=== PATIENT | male | born 1990 | race Caucasian/White ===

== ENCOUNTER 2019-05-12 23:33 | Emergency (ER) | payer SELFPAY ==
[~2019-05-12] VITALS: Ht 185.4 cm; Wt 87.6 kg
[2019-05-13 02:19] VITALS: BP 102/84
== END 2019-05-13 02:29 | disposition home or self-care (01) ==
LOC: ER 23:33
DX: L02.31 Cutaneous abscess of buttock (principal); Z90.49 Acquired absence of other specified parts of digestive tract
CPT/HCPCS: 99283